=== PATIENT | male | born 1950 | race Caucasian/White ===

== ENCOUNTER 2024-06-08 06:23 | Outpatient (RCR) | payer OTHER, SELFPAY | END 2024-06-08 23:59 | disposition home or self-care (01) | LOC: RST 06:23 | PROVIDERS: ATTENDING PHYSICIAN Physical Medicine & Rehabilitation; FAMILY PHYSICIAN Internal Medicine | DX: I69.318 Other symptoms and signs involving cognitive functions following cerebral infarction (principal); Z73.6 Limitation of activities due to disability; I69.398 Other sequelae of cerebral infarction; I69.353 Hemiplegia and hemiparesis following cerebral infarction affecting right non-dominant side; R26.89 Other abnormalities of gait and mobility | CPT/HCPCS: 96125; 97010; 97110; 97112; 97140; 97162; 97167; 97530; 97535 ==

== ENCOUNTER 2024-07-06 09:19 | Outpatient (RCR) | payer OTHER, SELFPAY | END 2024-07-06 23:59 | disposition home or self-care (01) | LOC: RST 09:19 | PROVIDERS: ATTENDING PHYSICIAN Physical Medicine & Rehabilitation; FAMILY PHYSICIAN Internal Medicine | DX: I69.318 Other symptoms and signs involving cognitive functions following cerebral infarction (principal); I69.391 Dysphagia following cerebral infarction; R13.19 Other dysphagia; Z73.6 Limitation of activities due to disability; R26.89 Other abnormalities of gait and mobility | CPT/HCPCS: 97010; 97110; 97112; 97116; 97140; 97530; 97535 ==

== ENCOUNTER 2024-08-10 09:48 | Outpatient (RCR) | payer OTHER, SELFPAY | END 2024-08-10 23:59 | disposition home or self-care (01) | LOC: RST 09:48 | PROVIDERS: ATTENDING PHYSICIAN Physical Medicine & Rehabilitation; FAMILY PHYSICIAN Internal Medicine | DX: I69.318 Other symptoms and signs involving cognitive functions following cerebral infarction (principal); I69.391 Dysphagia following cerebral infarction; R13.19 Other dysphagia; Z73.6 Limitation of activities due to disability; R26.89 Other abnormalities of gait and mobility | CPT/HCPCS: 97110; 97112; 97116; 97530; 97535 ==

== ENCOUNTER 2024-09-09 12:50 | Outpatient (RCR) | payer OTHER, SELFPAY | END 2024-09-09 14:39 | disposition home or self-care (01) | LOC: RST 12:50 | PROVIDERS: ATTENDING PHYSICIAN Physical Medicine & Rehabilitation; FAMILY PHYSICIAN Internal Medicine | DX: I69.318 Other symptoms and signs involving cognitive functions following cerebral infarction (principal); I69.391 Dysphagia following cerebral infarction; R13.19 Other dysphagia; R26.89 Other abnormalities of gait and mobility; Z73.6 Limitation of activities due to disability | CPT/HCPCS: 97110; 97112; 97116; 97530 ==